=== PATIENT | male | born 1940 | race Caucasian/White ===

== ENCOUNTER 2020-12-02 09:34 | Inpatient (IN) | payer MEDICARE ==
[~2020-12-02] VITALS: Ht 170.2 cm; Wt 108.9 kg
[2020-12-02] MEDS ORDERED: TOUJEO MAX300 UNIT/1 SQ (18:24)
[2020-12-02] MEDS ORDERED: PLAVIX75 MG PO (18:25)
[2020-12-02] MEDS ORDERED: LIPITOR10 MG PO (18:26)
[2020-12-02] MEDS ORDERED: HYDROCODON-ACE1 EAC2 PO (18:28)
[2020-12-02] MEDS ORDERED: AMBIEN10 MG PO (18:28)
[2020-12-02] MEDS ORDERED: AMLODIPINE BESYL5 MG PO (18:29)
[2020-12-02] MEDS ORDERED: FLOMAX 0.4 MG0.4 MG PO (18:30)
[2020-12-02] MEDS ORDERED: LOPRESSOR 25 MG25 MG PO (18:30)
[2020-12-02] MEDS ORDERED: PROTONIX20 MG PO (18:30)
[2020-12-02 19:19] LABS: HEMOGLOBIN 16.5 gm/dl (14.0-17.5); RED BLOOD COUNT 5.55 M/UL (4.20-5.50)
[2020-12-02 19:40] LABS: BUN/CREATININE RATIO 28 (0-10)
[2020-12-03 07:24] LABS: RED BLOOD COUNT 5.47 M/UL (4.20-5.50); WHITE BLOOD COUNT 6.2 K/UL (4.5-11.0)
[2020-12-03 07:46] LABS: BUN/CREATININE RATIO 29 (0-10)
[2020-12-04 01:44] LABS: HEMOGLOBIN 15.6 gm/dl (14.0-17.5); RED BLOOD COUNT 5.37 M/UL (4.20-5.50); WHITE BLOOD COUNT 6.8 K/UL (4.5-11.0)
[2020-12-04] MEDS ORDERED: METOPROLOL SUC100 MG PO ×2 (17:36→17:50)
[2020-12-04] MEDS ORDERED: ASPIRIN81 MG PO ×2 (17:36→17:50)
[2020-12-04] MEDS ORDERED: ATORVASTATIN CA20 MG PO ×2 (17:36→17:50)
[2020-12-04] MEDS ORDERED: AMLODIPINE BESYL5 MG PO ×2 (17:36→17:50)
[2020-12-04] MEDS ORDERED: ELIQUIS 5 MG TAB5 MG PO ×2 (17:36→17:50)
[2020-12-04] MEDS ORDERED: LASIX40 MG PO (18:16)
== END 2020-12-04 20:00 | disposition home or self-care (01) | DRG 286 ==
LOC: PROG CARE 18:24
PROVIDERS: ADMIT Internal Medicine
PROC: 4A023N7 Measurement of Cardiac Sampling and Pressure, Left Heart, Percutaneous Approach (ICD-10-PCS; principal; 2020-12-03)
PROC: B2111ZZ Fluoroscopy of Multiple Coronary Arteries using Low Osmolar Contrast (ICD-10-PCS; 2020-12-03)
DX: I11.0 Hypertensive heart disease with heart failure (principal); I63.9 Cerebral infarction, unspecified; J96.01 Acute respiratory failure with hypoxia; I44.2 Atrioventricular block, complete; I47.1 Supraventricular tachycardia; N17.9 Acute kidney failure, unspecified; I25.10 Atherosclerotic heart disease of native coronary artery without angina pectoris; Z20.822 Contact with and (suspected) exposure to COVID-19; I50.23 Acute on chronic systolic (congestive) heart failure; E11.9 Type 2 diabetes mellitus without complications; E78.5 Hyperlipidemia, unspecified; I48.91 Unspecified atrial fibrillation; E66.9 Obesity, unspecified; R29.6 Repeated falls; I34.0 Nonrheumatic mitral (valve) insufficiency; I25.5 Ischemic cardiomyopathy; I16.0 Hypertensive urgency; Z79.01 Long term (current) use of anticoagulants; Z79.4 Long term (current) use of insulin; Z82.49 Family history of ischemic heart disease and other diseases of the circulatory system; Z87.891 Personal history of nicotine dependence; Z79.82 Long term (current) use of aspirin
CPT/HCPCS: 36415; 70498; 70551; 71045; 80048; 80053; 80061; 82436; 82550; 82553; 82570; 82962; 83036; 83735; 83880; 84133; 84156; 84300; 84443; 84484; 85025; 93005; 93880; C1769; J1940; J2250; J3010; J7040; Q9967